=== PATIENT | female | born 1965 | race Caucasian/White ===

== ENCOUNTER 2023-09-09 18:09 | Observation (INO) | payer SELFPAY ==
[2023-09-09] VITALS (13 sets, daily range): BP systolic 144–183; BP diastolic 53–107
[~2023-09-09] VITALS: Ht 165.1 cm; Wt 59.0 kg
[2023-09-09 18:41] LABS: GFR FOR AFR.AMER. > 60 ML/MIN (>=60 (CALC)); GFR OTHER RACES > 60 ML/MIN (>=60 (CALC))
[2023-09-09 18:43] LABS: CALCULATED LDLCHOLESTEROL 157 mg/dL (62-129 (CALC)); CHOLESTEROL HDL RATIO 3.6 (<4.4 (CALC)); HDL CHOLESTEROL 68 mg/dL (39.0-59.0); TOTAL CHOLESTEROL 242 mg/dl (0-199); TOTAL TRIGLYCERIDES 83 mg/dl (0-149); VLDL CHOLESTROL 17 mg/dl (2-49 (CALC))
[2023-09-09 18:52] LABS: PROTHROMBIN TIME 9.9 SECONDS (9.0-12.5)
[2023-09-09] MEDS ORDERED: LEVOTHYROXIN75 MC1 PO (19:55)
[2023-09-09 20:25] LABS: BASO% 0.2 % (0-3); EOS% 0.1 % (0-8); HEMATOCRIT 41.1 % (37.0-47.0); HEMOGLOBIN 13.8 g/dl (12.0-16.0); IMMATURE GRANULOCYTES 0.2 % (0.0-5.0); LYMPH% 12.8 % (15-41); MEAN CELL VOLUME 83.5 fL CALC (80.0-100.0); MEAN CORPUSCULAR HGB CONC 33.6 g/dL CAL (32.0-36.0); MONO% 3.6 % (2-13); NEUT# 9.56 thou/uL (2.00-7.15); NEUT% 83.1 % (42-76); RED BLOOD COUNT 4.92 mill/uL (4.20-5.60); RED CELL DISTRI WIDTH 12.4 % (11.5-15.5)
[2023-09-09 20:52] LABS: URINE BILIRUBIN - DIPSTICK Negative (NEGATIVE); URINE BLOOD DIPSTICK Trace-intact (NEGATIVE); URINE GLUCOSE - DIPSTICK Negative (NEGATIVE); URINE KETONE 40 mg/dL (NEGATIVE); URINE LEUK ESTERASE Negative (NEGATIVE); URINE NITRITE - DIPSTICK Negative (Negative); URINE PH 7.5 (4.5-8.0); URINE PROTEIN - DIPSTICK 30 mg/dL (NEG-TRACE); URINE UROBILINOGEN - DIPSTICK 0.2 E.U./dL (0.2)
[2023-09-09 20:56] LABS: URINE COLOR Yellow
[2023-09-09 20:57] LABS: URINE AMORPH SEDIMENT MODERATE hpf (NONE-FEW); URINE SQUAMOUS EPITHELIAL CELL FEW EPI/hpf (0-FEW); URINE WBC 0-2 WBC/hpf (0-5)
[2023-09-09 21:02] LABS: ALBUMIN 4.8 g/dL (3.2-5.0); ALKALINE PHOSPHATASE 82 u/l (38-126); ANION GAP 17 (6-22 (CALC)); BILIRUBIN, TOTAL 0.7 mg/dL (0.02-1.3); BUN 16 mg/dL (7-17); BUN/CREATININE RATIO 23 (12-20 (CALC)); CARBON DIOXIDE 19 mmol/l (22-30); CHLORIDE 108 mmol/l (95-108); CREATININE 0.7 mg/dL (0.5-1.0); GFR FOR AFR.AMER. > 60 ML/MIN (>=60 (CALC)); GFR OTHER RACES > 60 ML/MIN (>=60 (CALC)); POTASSIUM 3.8 mmol/l (3.5-5.1); SGOT/AST 71 u/l (14-36); SODIUM 139 mmol/l (137-146); TOTAL PROTEIN 8.4 g/dL (6.3-8.2)
[2023-09-10] VITALS (11 sets, daily range): BP systolic 95–158; BP diastolic 69–113
[2023-09-10 06:46] LABS: BASO% 0.1 % (0-3); EOS% 0.1 % (0-8); HEMATOCRIT 37.1 % (37.0-47.0); HEMOGLOBIN 12.3 g/dl (12.0-16.0); IMMATURE GRANULOCYTES 0.1 % (0.0-5.0); LYMPH% 14.7 % (15-41); MEAN CELL VOLUME 83.7 fL CALC (80.0-100.0); MEAN CORPUSCULAR HGB 27.8 pG CALC (26.0-32.0); MEAN CORPUSCULAR HGB CONC 33.2 g/dL CAL (32.0-36.0); MONO% 6.3 % (2-13); NEUT# 11.43 thou/uL (2.00-7.15); NEUT% 78.7 % (42-76); RED BLOOD COUNT 4.43 mill/uL (4.20-5.60); RED CELL DISTRI WIDTH 12.6 % (11.5-15.5)
[2023-09-10 07:03] LABS: ALBUMIN 3.9 g/dL (3.2-5.0); ALKALINE PHOSPHATASE 66 u/l (38-126); BILIRUBIN, TOTAL 0.5 mg/dL (0.02-1.3); BUN 13 mg/dL (7-17); BUN/CREATININE RATIO 21 (12-20 (CALC)); CHLORIDE 108 mmol/l (95-108); CREATININE 0.6 mg/dL (0.5-1.0); GFR FOR AFR.AMER. > 60 ML/MIN (>=60 (CALC)); GFR OTHER RACES > 60 ML/MIN (>=60 (CALC)); POTASSIUM 4.1 mmol/l (3.5-5.1); SGOT/AST 31 u/l (14-36); SODIUM 140 mmol/l (137-146)
[2023-09-10 07:06] LABS: ANION GAP 10 (6-22 (CALC)); CARBON DIOXIDE 26 mmol/l (22-30); TOTAL PROTEIN 6.6 g/dL (6.3-8.2)
[2023-09-10] MEDS ORDERED: ATORVASTATIN CA40 MG PO (16:40)
[2023-09-10] MEDS ORDERED: MECLIZINE25 MG PO (16:41)
[2023-09-10] MEDS ORDERED: ASPIRIN81 MG PO (16:41)
[2023-09-10] MEDS ORDERED: ONDANSETRON4 MG PO (16:54)
== END 2023-09-10 17:20 | disposition home or self-care (01) | DRG 149 ==
LOC: ED 18:09 → ED-I 21:05 → ED 21:28 → ICU 21:29
PROVIDERS: Nurse Practitioner; Student in an Organized Health Care Education/Training Program; ADMIT Internal Medicine; ATTEND Internal Medicine
DX: R42 Dizziness and giddiness (principal); E87.20 Acidosis, unspecified; R11.2 Nausea with vomiting, unspecified; E03.9 Hypothyroidism, unspecified; D72.829 Elevated white blood cell count, unspecified; Z86.73 Personal history of transient ischemic attack (TIA), and cerebral infarction without residual deficits
CPT/HCPCS: Q9967